=== PATIENT | female | born 1950 | race Caucasian/White ===

== ENCOUNTER 2016-06-10 19:01 | Emergency (ER) | payer OTHER ==
[2016-06-10 19:10] VITALS: BP 148/73; PULSE 77; TEMP 98.7; BMI 26.5
--- NOTE | 2016-06-10 19:51 | PDOC ---
History of Present Illness <Domingo Wolfe - Last Filed: 06/10/16 19:47> - General History Source: Patient Exam Limitations: No Limitations - History of Present Illness Initial Comments: 06/10/16 19:52 The patient is a 65 year old female, with significant past medical history of HLD,HTN, and GERD,who presents today complaining of right sided rib pain starting last night. The patient states that the pain feels like pressure, radiates to her right upper back. She has experienced this pain 3 or 4 times before, but it has never lasted this long. Last night she took hydrocodone that she had at home for the pain with relief. The patient had an endoscopy this morning by Dr. Donovan who told her to visit the ER if the pain persists. Her last meal was soup this afternoon. States that she had a cough/cold 1 month ago. Denies heavy lifting, trauma. Denies fever, chills, nausea, vomiting. Denies diarrhea, constipation. Allergies: tetracycline, epinephrine Surgical Hx: hysterectomy, carpal tunnel Social Hx: no tobacco use. PCP- Dr. Williamson [employer] - Dr. Donovan <Luci Garcia - Last Filed: 06/10/16 19:52> - General Chief Complaint: Pain Stated Complaint: RT RIB PAIN Time Seen by Provider: 06/10/16 19:17 Past History - Past Medical History Anemia: No Asthma: No Cancer: No Cardiac Disorders: No CVA: No COPD: No CHF: No Dementia: No Diabetes: No GI Disorders: Yes (GERD; GASTRITIS;HEMORRHOIDS; HIATAL HERNIA) Disorders: No HTN: Yes Hypercholesterolemia: Yes Liver Disease: No Psychiatric Problems: Yes (DEPRESSION) Seizures: No Thyroid Disease: No - Surgical History Abdominal Surgery: Yes (HYSTERECTOMY) Appendectomy: No Cardiac Surgery: No Cholecystectomy: No Lung Surgery: No Neurologic Surgery: No Orthopedic Surgery: Yes (Right Carpal Tunnel Release) - Psycho/Social/Smoking Cessation Hx Anxiety: No Suicidal Ideation: No Smoking History: Never smoked Have you smoked in the past 12 months: No Hx Alcohol Use: No Drug/Substance Use Hx: No Substance Use Type: None Hx Substance Use Treatment: No <Domingo Wolfe - Last Filed: 06/10/16 19:47> <Luci Garcia - Last Filed: 04/28/17 19:52> - Past Medical History Allergies/Adverse Reactions: Allergies Allergy/AdvReac Type Severity Reaction Status Date / Time tetracycline [Tetracycline] Allergy Verified 05/19/14 07:34 epinephrine AdvReac Verified 02/05/15 11:58 Home Medications: Ambulatory Orders Atorvastatin Ca [Lipitor] 10 mg PO HS 02/17/11 Escitalopram Oxalate [Lexapro -] 10 mg PO DAILY 01/04/12 Calcium Carbonate [Calcium] 500 mg PO DAILY 02/05/15 FA/Mv,Ca,Iron,Min/Lycopene/Lut [Centrum Tablet] 1 each PO DAILY 02/05/15 Zolpidem Tartrate 10 mg PO DAILY PRN 02/05/15 Acetaminophen [Pain Relief] 650 mg PO ONCE PRN 06/10/16 Guar Gum [Benefiber] 1 each PO BID PRN 06/10/16 Ranitidine HCl [Zantac] 150 mg PO DAILY 06/10/16 Review of Systems - Review of Systems Able to Perform ROS?: Yes Comments:: 06/10/16 19:52 CONSTITUTIONAL: Absent: fever, chills, diaphoresis, generalized weakness, malaise, loss of appetite HEENT: Absent: rhinorrhea, nasal congestion, throat pain, throat swelling, difficulty swallowing, mouth swelling, ear pain, eye pain, visual Changes CARDIOVASCULAR: Absent: chest pain, syncope, palpitations, irregular heart rate, lightheadedness , peripheral edema RESPIRATORY: Absent: cough, shortness of breath, dyspnea with exertion, orthopnea, wheezing, stridor, hemoptysis GASTROINTESTINAL: Absent: abdominal pain, abdominal distension, nausea, vomiting, diarrhea, constipation, melena, hematochezia GENITOURINARY: Absent: dysuria, frequency, urgency, hesitancy, hematuria, flank pain, genital pain MUSCULOSKELETAL: Present: right sided rib pain that radiates to the right upper back. Absent: myalgia, arthralgia, joint swelling SKIN: Absent: rash, itching, pallor HEMATOLOGIC/IMMUNOLOGIC: Absent: easy bleeding, easy bruising, lymphadenopathy, frequent infections ENDOCRINE: Absent: unexplained weight gain, unexplained weight loss, heat intolerance, cold intolerance NEUROLOGIC: Absent: headache, focal weakness or paresthesias, dizziness, unsteady gait, seizure, mental status changes, bladder or bowel incontinence PSYCHIATRIC: Absent: anxiety, depression, suicidal or homicidal ideation, hallucinations. <Luci Garcia - Last Filed: 06/10/16 19:52> *Physical Exam - Vital Signs Last Vital Signs Temp Pulse Resp BP Pulse Ox 98.7 F 77 20 148/73 99 06/10/16 19:08 06/10/16 19:08 06/10/16 19:08 06/10/16 19:08 06/10/16 19:08 <Domingo Wolfe - Last Filed: 06/10/16 19:47> - Vital Signs Last Vital Signs Temp Pulse Resp BP Pulse Ox 98.7 F 77 20 148/73 99 06/10/16 19:08 06/10/16 19:08 06/10/16 19:08 06/10/16 19:08 06/10/16 19:08 - Physical Exam Comments: 06/10/16 19:52 GENERAL: Well developed, well nourished. Awake and alert. In no acute distress. HEENT: Normocephalic, atraumatic. PERRLA, EOMI. No conjunctival pallor. Sclera are non- icteric. Moist mucous membranes. Oropharynx is clear. NECK: Supple. Full ROM. No JVD. Carotid pulses 2+ and symmetric, without bruits. No thyromegaly. No lymphadenopathy. CARDIOVASCULAR: Regular rate and rhythm. No murmurs, rubs, or gallops. Distal pulses are 2+ and symmetric. PULMONARY: No evidence of respiratory distress. Lungs clear to auscultation bilaterally. No tachypnea, no dyspnea. No wheezing, rales or rhonchi. ABDOMINAL: Soft. Non-tender. Non-distended. No rebound or guarding. No organomegaly. Normoactive bowel sounds. MUSCULOSKELETAL Trigger point tend over the right upper back. Normal range of motion at all joints. No bony deformities or tenderness. No CVA tenderness. EXTREMITIES: No cyanosis. No clubbing. No edema. No calf tenderness. SKIN: Warm and dry. Normal capillary refill. No rashes. No jaundice. NEUROLOGICAL: Alert, awake, appropriate. Cranial nerves 2-12 intact. No deficits to light touch and temperature in face, upper extremities and lower extremities. No motor deficits in the in face, upper extremities and lower extremities. Normoreflexic in the upper and lower extremities. Normal speech. Toes are downgoing bilaterally. Gait is normal without ataxia. PSYCHIATRIC: Cooperative. Good eye contact. Appropriate mood and affect. <Luci Garcia - Last Filed: 06/10/16 19:52> *DC/Admit/Observation/Transfer - Discharge Dispostion Admit: No <Domingo Wolfe - Last Filed: 06/10/16 19:47> - Attestations Scribe Attestion: 06/10/16 19:52 Documentation prepared by [employer], acting as medical artist for Domingo Wolfe MD. <Luci Garcia - Last Filed: 06/10/16 19:52> Diagnosis at time of Disposition: Musculoskeletal pain - Discharge Dispostion Condition at time of disposition: Stable - Referrals Referrals: Gia Williamson MD [Primary Care Provider] - 1 week - Patient Instructions Printed Discharge Instructions: DI for Musculoskeletal Pain Additional Instructions: Gentle massage, may massage with ice if helpful. Gentle stretching exercises. No heavy lifting or bending reaching or carrying bags of the upper extremities. Tylenol and muscle relaxant as needed. See your orthopedist if pain persists, consider another injection as was helpful in the past.
== END 2016-06-10 20:01 | disposition home or self-care (01) ==
LOC: FER 19:01
DX: M79.1 Myalgia (principal); K21.9 Gastro-esophageal reflux disease without esophagitis; I10 Essential (primary) hypertension; E78.00 Pure hypercholesterolemia, unspecified; F32.9 Major depressive disorder, single episode, unspecified
CPT/HCPCS: 99282-25

== ENCOUNTER 2020-11-26 04:57 | Day surgery (SDC) | payer OTHER ==
[2020-11-20 15:36] VITALS: BMI 25.4
[2020-11-26 11:24] VITALS: TEMP 98.4
[2020-11-26 12:07] VITALS: BP 128/55; PULSE 70
== END 2020-11-26 12:23 | disposition home or self-care (01) ==
LOC: JASU-ENDO 04:57
PROVIDERS: ATTEND Internal Medicine Gastroenterology
PROC: 0DBL8ZX Excision of Transverse Colon, Via Natural or Artificial Opening Endoscopic, Diagnostic (ICD-10-PCS; principal; 2020-11-26 11:04)
DX: Z12.11 Encounter for screening for malignant neoplasm of colon (principal); Z86.010 Personal history of colon polyps; D12.3 Benign neoplasm of transverse colon; K64.8 Other hemorrhoids; K64.4 Residual hemorrhoidal skin tags
CPT/HCPCS: 88305-TC

== ENCOUNTER 2021-01-26 05:22 | Day surgery (SDC) | payer OTHER ==
[2021-01-22 16:04] VITALS: BMI 25.4
[2021-01-26 09:03] VITALS: TEMP 98.3
[2021-01-26 09:40] VITALS: PULSE 67
[2021-01-26 10:15] VITALS: BP 146/74
== END 2021-01-26 10:03 | disposition home or self-care (01) ==
LOC: JASU-ENDO 05:22
PROVIDERS: ATTEND Internal Medicine Gastroenterology
PROC: 0DB68ZX Excision of Stomach, Via Natural or Artificial Opening Endoscopic, Diagnostic (ICD-10-PCS; principal; 2021-01-26 08:30)
DX: K29.50 Unspecified chronic gastritis without bleeding (principal)
CPT/HCPCS: 88305-TC; 88342-TC